=== PATIENT | female | born 1945 | race Caucasian/White ===

== ENCOUNTER 2022-08-14 00:10 | Emergency (ER) | payer MEDICARE, OTHER ==
[~2022-08-14] VITALS: Ht 165.1 cm; Wt 57.2 kg
--- NOTE | 2022-08-14 00:10 | NUR ---
PT [facility]IB[facility] BED 5
--- NOTE | 2022-08-14 00:15 | NUR ---
77 Y/O F PRESENTS WITH CHEST PAIN [id number] 10/29. PT STATED SHE IS HAVING HEADACHES WITH NV DENIES ANY DIARRHEA.PT STATED SHE IS SUPPOSED TO HAVE HEART SURGERY SOON. PT IS A&OX4, SKIN INTACT, RESPIRATIONS EVEN AND UNLABORED. PT IS AMBULATORY, DAUGHTER IS BEDSIDE. PT STATES SHE TAKES ASPIRIN AND NITROGLYCERIN AT HOME USUALLY PMH-DM, HTN, HIGH CHOLESTEROL NKA
--- NOTE | 2022-08-14 00:16 | NUR ---
PT IS ON BEDSIDE [employer].
--- NOTE | 2022-08-14 00:16 | NUR ---
DR HALLMAN AT BEDSIDE
[2022-08-14 00:20] VITALS: BP 124/61
[2022-08-14 00:44] LABS: BASOPHILS # (AUTO) 0.1 K/uL (0.00-0.22); BASOPHILS % (AUTO) 0.8 % (0.0-2.0); EOSINOPHILS # (AUTO) 0.2 K/uL (0-0.4); HEMATOCRIT 35.2 % (36-48); HEMOGLOBIN 11.8 g/dL (12.0-16.0); LYMPHOCYTES # (AUTO) 1.8 K/uL (2.5-16.5); LYMPHOCYTES % (AUTO) 26.2 % (20.5-51.1); MEAN CORPUSCULAR HEMOGLOBIN 28 pg (27-31); MEAN CORPUSCULAR HGB CONC 34 g/dL (33-37); MEAN CORPUSCULAR VOLUME 83.8 fL (80-94); MONOCYTES # (AUTO) 0.5 K/uL (0.8-1.0); MONOCYTES % (AUTO) 7.5 % (1.7-9.3); NEUTROPHILS # (AUTO) 4.4 K/uL (1.8-7.7); NEUTROPHILS % (AUTO) 62.5 % (42.2-75.2); PLATELET COUNT (AUTO) 241 K/uL (140-450); RED CELL DISTRIBUTION WIDTH 13.9 % (11.6-13.7)
--- NOTE | 2022-08-14 00:57 | NUR ---
COVID SWAB COLLECTED AND SENT TO LAB
--- NOTE | 2022-08-14 01:00 | NUR ---
daughter bedside. awaiting transfer.
[2022-08-14 01:04] LABS: ALBUMIN 3.5 g/dL (3.4-5.0); ANION GAP 13.5 (8-16); ASPARTATE AMINOTRANSFERASE 15 U/L (15-37); CARBON DIOXIDE 24.5 mmol/L (21-32); CHLORIDE 104 mmol/L (98-107); CREATININE 0.9 mg/dL (0.6-1.3); GLUCOSE 163 mg/dL (74-106); SODIUM SERUM 138 mmol/L (136-145); TOTAL BILIRUBIN 0.4 mg/dL (0.0-1.0); UREA NITROGEN, BLOOD 23 mg/dL (7-18)
[2022-08-14 01:08] LABS: PROTHROMBIN TIME 10.3 secs (10.8-13.4)
[2022-08-14] MEDS ORDERED: HEPARIN PER PHARMACY MC PRN ×2 (02:15→03:15)
[2022-08-14] MEDS ORDERED: hePARIN / DEXT 5% PREMIX 250 ML IV ONE ×2 (03:15→03:20)
[2022-08-14 03:21] VITALS: BP 122/57
--- NOTE | 2022-08-14 03:57 | NUR ---
[facility] transport at bedside
--- NOTE | 2022-08-14 04:00 | NUR ---
report called to Katalina GOLDSTEIN at [facility] for transport
--- NOTE | 2022-08-14 04:15 | NUR ---
Patient to be transferred to [facility]. Is being transferred due to higher level of care. Receiving facility has accepting physician and available space. ER physician has signed transfer form. Patient or responsible green party has agreed to transfer and signed form. Patient belongings inventoried and will be sent with patient. Copy of nursing notes, lab reports, EKG, Physicians Orders and X-rays to be sent with patient. Report called to gaurav squires at receiving facility. [facility] ambulance service has been called for transfer. ETA is 60 min.
== END 2022-08-14 04:15 | disposition short-term general hospital (02) ==
LOC: MED 00:10
DX: I21.4 Non-ST elevation (NSTEMI) myocardial infarction (principal); R07.2 Precordial pain; Z20.822 Contact with and (suspected) exposure to COVID-19; I25.10 Atherosclerotic heart disease of native coronary artery without angina pectoris; I10 Essential (primary) hypertension; E11.9 Type 2 diabetes mellitus without complications; E78.5 Hyperlipidemia, unspecified; Z95.4 Presence of other heart-valve replacement; Z95.1 Presence of aortocoronary bypass graft
CPT/HCPCS: 36415; 71045; 80053; 83880; 84484; 85025; 85610; 85730; 87426; 96365; 96376; 99291; 99292; J1644; Q0092; 99285